=== PATIENT | female | born 1995 | race Caucasian/White ===

== ENCOUNTER 2017-12-01 17:05 | Inpatient (IN) | payer BC, MEDICAID ==
[2017-12-01] MEDS ORDERED: Nalbuphine 10 MG/1 ML Vial IVPUSH PRN (17:18)
[2017-12-01] MEDS ORDERED: Water For Irrigation,Sterile 1,000 ML Container IRR PRN (17:18)
[2017-12-01] MEDS ORDERED: Lidocaine 1% 50 ML MDV INJECT PRN (17:18)
[2017-12-01] MEDS ORDERED: Carboprost Tromethamine 250 MCG/1 ML Amp IM PRN (17:18)
[2017-12-01] MEDS ORDERED: Butorphanol 1 MG/ML SDV IVPUSH PRN (17:18)
[2017-12-01] MEDS ORDERED: Terbutaline 1 MG/ML SDV SUBCUT PRN (17:18)
[2017-12-01] MEDS ORDERED: Ondansetron 4 MG/2 ML SDV IV PRN (17:18)
[2017-12-01] MEDS ORDERED: Methylergonovine 0.2 MG/1 ML Amp IM PRN (17:18)
[2017-12-01] MEDS ORDERED: Tranexamic Acid 1,000 MG in Sodium Chloride 0.9% 100 ML IV PRN (17:18)
[2017-12-01] MEDS ORDERED: Sodium Chloride 0.9% 10 ML Syringe FLUSH PRN (17:18)
[2017-12-01] MEDS ORDERED: Sodium Chloride 0.9% 2.5 ML Syringe FLUSH PRN (17:18)
[2017-12-01] MEDS ORDERED: Misoprostol 200 MCG Tab PO PRN (17:18)
[2017-12-01] MEDS ORDERED: Oxytocin/0.9 % Sodium Chloride 30 UNIT/500 ML BAG IV SCH ×2 (17:30)
[2017-12-01] MEDS ORDERED: Lactated Ringers 1,000 ML IV SCH (17:30)
[2017-12-01] MEDS: Misoprostol 25 MCG (1/4 of 100 MCG) Tab VAG PRN (17:54)
[2017-12-02] MEDS: Misoprostol 25 MCG (1/4 of 100 MCG) Tab VAG PRN (00:02)
[2017-12-02] MEDS ORDERED: Docusate Sodium 100 MG Cap PO PRN (17:06)
[2017-12-02] MEDS ORDERED: Ibuprofen 400 MG Tab PO PRN (17:06)
[2017-12-02] MEDS ORDERED: Lanolin 100% Cream 7 GM Tube TOP PRN (17:06)
[2017-12-02] MEDS ORDERED: Acetaminophen 500 MG Tab PO PRN ×2 (17:06)
[2017-12-02] MEDS ORDERED: Benzocaine/Menthol 20%-0.5% Spray 78 GM Cannister TOP PRN (17:06)
[2017-12-02] MEDS ORDERED: Witch Hazel Medicated Pads 40/Jar TOP PRN (17:06)
[2017-12-02] MEDS ORDERED: Methylergonovine 0.2 MG/1 ML Amp IM PRN (17:06)
[2017-12-02] MEDS ORDERED: Bisacodyl 10 MG Supp RECTAL PRN (17:06)
[2017-12-02] MEDS ORDERED: oxyCODONE 5 MG Tab PO PRN (17:06)
--- NOTE | 2017-12-02 17:41 | PCM.DEL ---
L & D Note - General Info Date of Service: 12/02/17 Mother's Due Date: 12/09/17 - Delivery Note Labor: Augmented by ARM Cervical Ripening Method: Misoprostil Delivery Outcome: Livebirth Infant Delivery Method: Spontaneous Vaginal Delivery-Single Presentation: Right Occiput Anterior (LIZANDRO) Nuchal Cord: Present Anesthetic: Lidocaine (Xylocaine) 1% Plain Local Anesthetic Volume: 5cc Amniotic Fluid Description: Clear Episiotomy Type: None Laceration: Labial (Left) Suture type: Vicryl Suture size: 3-0 Placenta: Intact, Spontaneous Cord: 3 Vessels Estimated Blood Loss: 300 Resuscitation Needed: Yes : Bulb Syringe, Stimulated, Warmed Score 1 min: 3 Score 5 min: 9 - General Info Date of Service: 12/02/17 - Patient Data Weight - Most Recent: 54.431 kg Lab Results Last 24 Hours: Laboratory Results - last 24 hr 12/01/17 12/01/17 Range/Units 17:34 17:34 WBC 7.93 (4.0-11.0) K/uL RBC 3.55 L (4.30-5.90) M/uL Hgb 10.5 L (12.0-16.0) g/dL Hct 31.2 L (36.0-46.0) % MCV 87.9 (80.0-98.0) fL MCH 29.6 (27.0-32.0) pg MCHC 33.7 (31.0-37.0) g/dL RDW Std Deviation 41.2 (28.0-62.0) fl RDW Coeff of Vanessa 13 (11.0-15.0) % Plt Count 243 (150-400) K/uL MPV 9.60 (7.40-12.00) fL Nucleated RBC % 0.0 /100WBC Nucleated RBCs # 0 K/uL Blood Type A POSITIVE Antibody Screen NEGATIVE Med Orders - Current: Current Medications Butorphanol Tartrate (Stadol) 1 mg IVPUSH Q1H PRN PRN Reason: Pain Carboprost Tromethamine (Hemabate Ds) 250 mcg IM ASDIRECTED PRN PRN Reason: Post Hemorrhage Lactated Ringer's (Ringers, Lactated) 1,000 mls @ 150 mls/hr IV ASDIRECTED KING Last Admin: 12/02/17 09:50 Dose: 999 mls/hr Oxytocin/Sodium Chloride (Oxytocin 30 Unit/500 Ml-Ns) 30 unit in 500 mls @ 999 mls/hr IV TITRATE KING Last Admin: 12/02/17 16:14 Dose: 999 mls/hr Oxytocin/Sodium Chloride (Oxytocin 30 Unit/500 Ml-Ns) 30 unit in 500 mls @ 2 mls/hr IV TITRATE KING; Protocol Tranexamic Acid 1,000 mg/ (Sodium Chloride) 110 mls @ 660 mls/hr IV ONETIME PRN PRN Reason: Bleeding Lidocaine HCl (Xylocaine 1%) 50 ml INJECT ONETIME PRN PRN Reason: Laceration repair Last Admin: 12/02/17 16:46 Dose: 50 ml Methylergonovine Maleate (Methergine) 0.2 mg IM ASDIRECTED PRN PRN Reason: Post Hemorrhage Misoprostol (Cytotec) 200 mcg PO ONETIME PRN PRN Reason: Post Hemorrhage Misoprostol (Cytotec) 25 mcg VAG Q6H PRN PRN Reason: Cervical Ripening Last Admin: 12/02/17 00:02 Dose: 25 mcg Nalbuphine HCl (Nubain) 10 mg IVPUSH Q1H PRN PRN Reason: Pain (severe 7-10) Ondansetron HCl (Zofran) 4 mg IV Q6H PRN PRN Reason: Nausea/Vomiting Sodium Chloride (Saline Flush) 10 ml FLUSH ASDIRECTED PRN PRN Reason: Keep Vein Open Sodium Chloride (Saline Flush) 2.5 ml FLUSH ASDIRECTED PRN PRN Reason: Keep Vein Open Sterile Water (Sterile Water For Irrigation) 1,000 ml IRR ASDIRECTED PRN PRN Reason: delivery Last Admin: 12/02/17 16:46 Dose: 1,000 ml Terbutaline Sulfate (Brethine) 0.25 mg SUBCUT ASDIRECTED PRN PRN Reason: Tacysystole - Problem List & Annotations (1) Normal spontaneous vaginal delivery SNOMED Code(s): 74391911 Code(s): O80 - ENCOUNTER FOR FULL-TERM UNCOMPLICATED DELIVERY Status: Acute Current Visit: Yes - Problem List Review Problem List Initiated/Reviewed/Updated: Yes
[2017-12-02] MEDS: Ibuprofen 800 MG Tab PO PRN (19:43)
--- NOTE | 2017-12-03 00:05 | OR ---
SURGEON: Regina Haddad M.D. DATE OF PROCEDURE: 12/02/2017 DICTATED BY: Elaina Adorno. PREOPERATIVE DIAGNOSES: 1. A 39-week 0-day intrauterine . 2. Induction of labor for history of pulmonary embolism. POSTOPERATIVE DIAGNOSES: 1. A 39-week 0-day intrauterine . 2. Induction of labor for history of pulmonary embolism. PROCEDURE PERFORMED: Spontaneous vaginal delivery and repair of left labial laceration. SUBWAY OPERATOR: Elaina Adorno, MS-4 ANESTHESIA: 5 mL of 1% lidocaine. ESTIMATED BLOOD LOSS: 300 mL. COMPLICATIONS: None. FINDINGS: A viable female with scores of 3 at 1 minute and 9 at 5 minutes. Weight is 3170 g. Spontaneous delivery, intact placenta, 3-vessel cord. DISPOSITION: The patient in LDRP, and with mother at this time. PROCEDURE IN DETAIL: Fawn Sharpe is a 22-year-old at 39 weeks 0 days' gestational age, who presented for induction of labor given past medical history of pulmonary embolism. She has been on lovenox prophylactically through the . She took her last dose of Lovenox 24 hours prior to arrival for induction She arrived at 1700 hours last night, and initial cervical exam showed her to be 1 to 2 cm dilated, 50% effaced, -2 station, membranes intact. At 1800 hours yesterday evening, a first dose of Cytotec 25 mcg was placed. At 2100 hours, her exam showed her cervix to be 1 to 2 cm dilated, 50% effaced, -2 station. Another dose of Cytotec 25 mcg was placed at 0000 hours, and at that time, cervix was 2 cm dilated, 50% effaced, -2 station. By 0830 hours this morning, cervix was 3 to 4 cm dilated, 70% effaced, -2 station, and amniotomy was performed with return of clear fluid. By 1215 hours, she was 8 cm dilated, 90% effaced, 0 station. At 1510 hours, she was noted to be completely dilated, 100% effaced, +1 station. I was called for delivery. Upon my arrival, the patient was placed in the modified dorsal lithotomy position, was prepped and draped in the usual aseptic manner. With continued pushing efforts, I was able to deliver the infant's head atraumatically and spontaneously, followed by anterior shoulder, posterior shoulder, and main body. Familia position and corkscrew maneuver was used to assist with delivery of the anterior shoulder, however no shoulder dystocia occurred. Nuchal cord was noted x1. After delivery of the main body, cord was clamped x2 and cut. The infant was handed off to nursing staff for further cares. Cord arterial, cord venous, and cord blood sampling were obtained. Light pressure was applied while the placenta was delivered spontaneously intact. Vigorous fundal uterine massage was applied while 30 units of Pitocin was delivered in 500 mL of IV fluid. Upon inspection of the cervix, vaginal sidewall, and perineum, a small left labial laceration was noted. This was repaired with 1 interrupted suture using 3-0 Vicryl. Uterus remained firm, and hemostasis was evident. Sponge and needle counts were correct. The patient remained in LDRP, and the is with mother at this time. I was present for entire delivery and have reviewed this dictation. MD NAN Peterson / ARIES /[id number] CHELSI
[2017-12-03] MEDS: Ibuprofen 800 MG Tab PO PRN (04:32)
--- NOTE | 2017-12-03 08:24 | PCM.PN ---
<Elaina Adorno - Last Filed: 12/03/17 08:19> - General Info Date of Service: 12/03/17 Subjective Update: 22yo PPD#1 from [facility]. Doing well this AM. Initially had some trouble but feels it is going well now. Endorsing occasional uterine cramping "like period cramps" and some perineal pain, mostly controlled with PO meds. Was straight cathed x1 last night, but was able to void since then without hesitancy or dysuria. Minimal lochia. Ambulating without difficulty. Tolerating diet, no nausea. - Review of Systems General: Reports: No Symptoms HEENT: Reports: No Symptoms Pulmonary: Reports: No Symptoms Cardiovascular: Reports: No Symptoms Gastrointestinal: Reports: No Symptoms Genitourinary: Reports: Other (Cramping and perineal pain) Musculoskeletal: Reports: No Symptoms Skin: Reports: No Symptoms Neurological: Reports: No Symptoms Psychiatric: Reports: No Symptoms - Patient Data Vitals - Most Recent: Last Vital Signs Temp 99.2 F 12/03/17 07:20 Pulse 69 12/03/17 07:20 Resp 16 12/03/17 07:20 BP 111/44 L 12/03/17 07:20 Pulse Ox 95 12/03/17 07:20 Weight - Most Recent: 54.431 kg Lab Results Last 24 Hours: Laboratory Results - last 24 hr 12/02/17 12/03/17 Range/Units 16:13 05:04 Hgb 10.0 L (12.0-16.0) g/dL Hct 30.4 L (36.0-46.0) % Cord ABG pH 7.154 L (7.18-7.38) Cord ABG Base Excess -11 L (-10--2) Cord VBG pH 7.267 (7.25-7.45) Cord VBG Base Excess -9 (-10--2) Med Orders - Current: Current Medications Acetaminophen (Tylenol Extra Strength) 500 mg PO Q4H PRN PRN Reason: Pain Acetaminophen (Tylenol Extra Strength) 1,000 mg PO Q4H PRN PRN Reason: Pain Benzocaine/Menthol (Dermoplast Pain Relief 20%-0.5% [place]) 78 gm TOP ASDIRECTED PRN PRN Reason: Perineal Comfort Measure Last Admin: 12/02/17 18:11 Dose: 1 can Bisacodyl (Dulcolax) 10 mg RECTAL ONETIME PRN PRN Reason: Constipation Docusate Sodium (Colace) 100 mg PO BID PRN PRN Reason: Constipation Emollient Ointment (Lansinoh Hpa) 0 gm TOP ASDIRECTED PRN PRN Reason: Sore Nipples Enoxaparin Sodium (Lovenox) 40 mg SUBCUT DAILY KING Ibuprofen (Motrin) 400 mg PO Q4H PRN PRN Reason: Pain Ibuprofen (Motrin) 800 mg PO Q6H PRN PRN Reason: Pain Last Admin: 12/03/17 04:32 Dose: 800 mg Methylergonovine Maleate (Methergine) 0.2 mg IM ONETIME PRN PRN Reason: Excessive Vaginal Bleeding Oxycodone HCl (Oxycodone) 5 mg PO Q2H PRN PRN Reason: Pain Witch Sharon (Tucks) 1 pad TOP ASDIRECTED PRN PRN Reason: comfort care Last Admin: 12/02/17 18:11 Dose: 1 tub Discontinued Medications Butorphanol Tartrate (Stadol) 1 mg IVPUSH Q1H PRN PRN Reason: Pain Carboprost Tromethamine (Hemabate Ds) 250 mcg IM ASDIRECTED PRN PRN Reason: Post Hemorrhage Lactated Ringer's (Ringers, Lactated) 1,000 mls @ 150 mls/hr IV ASDIRECTED [facility] Last Admin: 12/02/17 09:50 Dose: 999 mls/hr Oxytocin/Sodium Chloride (Oxytocin 30 Unit/500 Ml-Ns) 30 unit in 500 mls @ 999 mls/hr IV TITRATE [facility] Last Admin: 12/02/17 16:14 Dose: 999 mls/hr Oxytocin/Sodium Chloride (Oxytocin 30 Unit/500 Ml-Ns) 30 unit in 500 mls @ 2 mls/hr IV TITRATE [facility]; Protocol Tranexamic Acid 1,000 mg/ (Sodium Chloride) 110 mls @ 660 mls/hr IV ONETIME PRN PRN Reason: Bleeding Lidocaine HCl (Xylocaine 1%) 50 ml INJECT ONETIME PRN PRN Reason: Laceration repair Last Admin: 12/02/17 16:46 Dose: 50 ml Methylergonovine Maleate (Methergine) 0.2 mg IM ASDIRECTED PRN PRN Reason: Post Hemorrhage Misoprostol (Cytotec) 200 mcg PO ONETIME PRN PRN Reason: Post Hemorrhage Misoprostol (Cytotec) 25 mcg VAG Q6H PRN PRN Reason: Cervical Ripening Last Admin: 12/02/17 00:02 Dose: 25 mcg Nalbuphine HCl (Nubain) 10 mg IVPUSH Q1H PRN PRN Reason: Pain (severe 7-10) Ondansetron HCl (Zofran) 4 mg IV Q6H PRN PRN Reason: Nausea/Vomiting Sodium Chloride (Saline Flush) 10 ml FLUSH ASDIRECTED PRN PRN Reason: Keep Vein Open Sodium Chloride (Saline Flush) 2.5 ml FLUSH ASDIRECTED PRN PRN Reason: Keep Vein Open Sterile Water (Sterile Water For Irrigation) 1,000 ml IRR ASDIRECTED PRN PRN Reason: delivery Last Admin: 12/02/17 16:46 Dose: 1,000 ml Terbutaline Sulfate (Brethine) 0.25 mg SUBCUT ASDIRECTED PRN PRN Reason: Tacysystole - Exam General: Alert, Oriented Lungs: Clear to Auscultation, Normal Respiratory Effort Cardiovascular: Regular Rate, Regular Rhythm, No Murmurs GI/Abdominal Exam: Normal Bowel Sounds, Soft, Non-Tender (Female) Exam: No: Uterine Tenderness Extremities: No Pedal Edema, Other (No calf tendereness) Peripheral Pulses: 2+: Posterior Tibial (L), Posterior Tibial (R), Dorsalis Pedis (L), Dorsalis Pedis (R) Skin: Warm, Dry Neurological: No New Focal Deficit Psy/Mental Status: Normal Affect, Normal Mood - Problem List & Annotations (1) Normal spontaneous vaginal delivery SNOMED Code(s): 52989366 Code(s): O80 - ENCOUNTER FOR FULL-TERM UNCOMPLICATED DELIVERY Status: Acute Current Visit: Yes - Problem List Review Problem List Initiated/Reviewed/Updated: Yes - Assessment Assessment:: Fawn Sharpe is a 22yo with PMH notable for pulmonary embolism who is PPD #1 from and repair of left labial laceration. Clinically stable, VS and labs reassuring. - Plan Plan:: Continue routine cares. She will resume lovenox at 0900 today. Patient desires discharge home this evening, discharge instructions discussed. Continue PNV while . Can use tylenol for pain, no NSAIDs while on lovenox. Pelvic rest until follow-up in clinic in 6 weeks. Discussed warning signs to return to clinic including fever over 101, intractable pain, and bleeding more than 1 pad per hour. <Regina Haddad - Last Filed: 12/03/17 08:48> - Patient Data Vitals - Most Recent: Last Vital Signs Temp 37.3 C 12/03/17 07:20 Pulse 69 12/03/17 07:20 Resp 16 12/03/17 07:20 BP 111/44 L 12/03/17 07:20 Pulse Ox 95 12/03/17 07:20 Lab Results Last 24 Hours: Laboratory Results - last 24 hr 12/02/17 12/03/17 Range/Units 16:13 05:04 Hgb 10.0 L (12.0-16.0) g/dL Hct 30.4 L (36.0-46.0) % Cord ABG pH 7.154 L (7.18-7.38) Cord ABG Base Excess -11 L (-10--2) Cord VBG pH 7.267 (7.25-7.45) Cord VBG Base Excess -9 (-10--2) Med Orders - Current: Current Medications Acetaminophen (Tylenol Extra Strength) 500 mg PO Q4H PRN PRN Reason: Pain Acetaminophen (Tylenol Extra Strength) 1,000 mg PO Q4H PRN PRN Reason: Pain Benzocaine/Menthol (Dermoplast Pain Relief 20%-0.5% [place]) 78 gm TOP ASDIRECTED PRN PRN Reason: Perineal Comfort Measure Last Admin: 12/02/17 18:11 Dose: 1 can Bisacodyl (Dulcolax) 10 mg RECTAL ONETIME PRN PRN Reason: Constipation Docusate Sodium (Colace) 100 mg PO BID PRN PRN Reason: Constipation Emollient Ointment (Lansinoh Hpa) 0 gm TOP ASDIRECTED PRN PRN Reason: Sore Nipples Enoxaparin Sodium (Lovenox) 40 mg SUBCUT DAILY KING Ibuprofen (Motrin) 400 mg PO Q4H PRN PRN Reason: Pain Ibuprofen (Motrin) 800 mg PO Q6H PRN PRN Reason: Pain Last Admin: 12/03/17 04:32 Dose: 800 mg Methylergonovine Maleate (Methergine) 0.2 mg IM ONETIME PRN PRN Reason: Excessive Vaginal Bleeding Oxycodone HCl (Oxycodone) 5 mg PO Q2H PRN PRN Reason: Pain Witch Sharon (Tucks) 1 pad TOP ASDIRECTED PRN PRN Reason: comfort care Last Admin: 12/02/17 18:11 Dose: 1 tub Discontinued Medications Butorphanol Tartrate (Stadol) 1 mg IVPUSH Q1H PRN PRN Reason: Pain Carboprost Tromethamine (Hemabate Ds) 250 mcg IM ASDIRECTED PRN PRN Reason: Post Hemorrhage Lactated Ringer's (Ringers, Lactated) 1,000 mls @ 150 mls/hr IV ASDIRECTED KING Last Admin: 12/02/17 09:50 Dose: 999 mls/hr Oxytocin/Sodium Chloride (Oxytocin 30 Unit/500 Ml-Ns) 30 unit in 500 mls @ 999 mls/hr IV TITRATE KING Last Admin: 12/02/17 16:14 Dose: 999 mls/hr Oxytocin/Sodium Chloride (Oxytocin 30 Unit/500 Ml-Ns) 30 unit in 500 mls @ 2 mls/hr IV TITRATE KING; Protocol Tranexamic Acid 1,000 mg/ (Sodium Chloride) 110 mls @ 660 mls/hr IV ONETIME PRN PRN Reason: Bleeding Lidocaine HCl (Xylocaine 1%) 50 ml INJECT ONETIME PRN PRN Reason: Laceration repair Last Admin: 12/02/17 16:46 Dose: 50 ml Methylergonovine Maleate (Methergine) 0.2 mg IM ASDIRECTED PRN PRN Reason: Post Hemorrhage Misoprostol (Cytotec) 200 mcg PO ONETIME PRN PRN Reason: Post Hemorrhage Misoprostol (Cytotec) 25 mcg VAG Q6H PRN PRN Reason: Cervical Ripening Last Admin: 12/02/17 00:02 Dose: 25 mcg Nalbuphine HCl (Nubain) 10 mg IVPUSH Q1H PRN PRN Reason: Pain (severe 7-10) Ondansetron HCl (Zofran) 4 mg IV Q6H PRN PRN Reason: Nausea/Vomiting Sodium Chloride (Saline Flush) 10 ml FLUSH ASDIRECTED PRN PRN Reason: Keep Vein Open Sodium Chloride (Saline Flush) 2.5 ml FLUSH ASDIRECTED PRN PRN Reason: Keep Vein Open Sterile Water (Sterile Water For Irrigation) 1,000 ml IRR ASDIRECTED PRN PRN Reason: delivery Last Admin: 12/02/17 16:46 Dose: 1,000 ml Terbutaline Sulfate (Brethine) 0.25 mg SUBCUT ASDIRECTED PRN PRN Reason: Tacysystole - Problem List & Annotations (1) Normal spontaneous vaginal delivery SNOMED Code(s): 63897765 Code(s): O80 - ENCOUNTER FOR FULL-TERM UNCOMPLICATED DELIVERY Status: Acute Current Visit: Yes - Problem List Review Problem List Initiated/Reviewed/Updated: Yes - My Orders Last 24 Hours: My Active Orders 12/02/17 17:06 Patient Status [ADT] Routine May Shower [RC] ASDIRECTED Up ad Sara [RC] ASDIRECTED Vital Signs [RC] PER UNIT ROUTINE Acetaminophen [Tylenol Extra Strength] 1,000 mg PO Q4H PRN Acetaminophen [Tylenol Extra Strength] 500 mg PO Q4H PRN Benzocaine/Menthol [Dermoplast Pain Relief 20%-0.5% [place]] 78 gm TOP ASDIRECTED PRN Bisacodyl [Dulcolax] 10 mg RECTAL ONETIME PRN Docusate Sodium [Colace] 100 mg PO BID PRN Ibuprofen [Motrin] 400 mg PO Q4H PRN Ibuprofen [Motrin] 800 mg PO Q6H PRN Lanolin [Lansinoh HPA] See Dose Instructions TOP ASDIRECTED PRN Methylergonovine [Methergine] 0.2 mg IM ONETIME PRN Witch Sharon [Tucks] 1 pad TOP ASDIRECTED PRN oxyCODONE 5 mg PO Q2H PRN Assess Lochia [WOMSER] Per Unit Routine Assess Uterine Involution [WOMSER] Per Unit Routine DVT/VTE Prophylaxis Reflex [OM.PC] Routine Peripheral IV Discontinue [OM.PC] Routine Resuscitation Status Routine 12/02/17 17:07 Antiembolic Devices [RC] .Routine VTE/DVT Education [RC] PER UNIT ROUTINE Perineal Care [OM.PC] Per Unit Routine 12/02/17 Dinner Regular Diet [DIET] 12/03/17 09:00 Enoxaparin [Lovenox] 40 mg SUBCUT DAILY - Assessment Assessment:: patient was seen and examined by me and I agree with above. Patient was counseled regarding avoiding NSAID and aspirin while on Lovenox. Continue Lovenox for 6 weeks.
[2017-12-03] MEDS ORDERED: Enoxaparin 40 MG/0.4 ML Syringe SUBCUT SCH (09:00)
== END 2017-12-03 20:30 | disposition home or self-care (01) | DRG 774 ==
LOC: MW.OBCHECK 17:05 → MW.OB 17:12 → MW.OBCHECK 17:18 → OBSVTOIN 12-02 16:13 → MW.OB 12-02 21:28
PROVIDERS: ADMIT Obstetrics & Gynecology; ATTEND Obstetrics & Gynecology
PROC: 10E0XZZ Delivery of Products of Conception, External Approach (ICD-10-PCS; principal; 2017-12-02)
PROC: 3E0P7VZ Introduction of Hormone into Female Reproductive, Via Natural or Artificial Opening (ICD-10-PCS; 2017-12-02)
PROC: 0HQ9XZZ Repair Perineum Skin, External Approach (ICD-10-PCS; 2017-12-02)
DX: O70.0 First degree perineal laceration during delivery (principal); O88.22 Thromboembolism in childbirth; Z3A.39 39 weeks gestation of pregnancy; Z37.0 Single live birth; Z79.01 Long term (current) use of anticoagulants
CPT/HCPCS: 36415; 59025; 59409; 82803; 85014; 85018; 85027; 86850; 86900; 86901; A9270-GY; J1650; J2590; J7120

== ENCOUNTER 2018-05-17 19:55 | Emergency (ER) | payer MEDICAID, OTHER ==
--- NOTE | 2018-05-17 20:23 | EDM.PDOC ---
ED HPI GENERAL MEDICAL PROBLEM - General Chief Complaint: Chest Pain Stated Complaint: CHEST PAIN Time Seen by Provider: 05/17/18 20:05 Source of Information: Reports: Patient History Limitations: Reports: No Limitations - History of Present Illness INITIAL COMMENTS - FREE TEXT/NARRATIVE: HISTORY AND PHYSICAL: History of present illness: Patient is a G2:P1, 23-year-old female presents to the ED today with concerns of left-sided chest pressure. Patient states she believes to be about 7 weeks and is concerned about pressure in her left chest times x 1 week. Patient describes it as feeling as if someone is sitting on the left side of her chest. Patient has a history of PE and was on Lovenox and was stopped about 6 months ago. Patient states that this sensation is similar to previous PE. Patient states she had a workup for the cause of her PE but none was found. She has not seen a woman's health practitioner or any provider since a positive test. Patient states other than the pressure in her chest she denies any other symptoms or concerns at this time. Denies any vaginal bleeding/ discharge, cramping or low back pain. Patient denies cough, shortness of breath, difficulties breathing, hemoptysis palpitations, pain with inspiration, diaphoresis, abdominal pain, nausea, vomiting, diarrhea, recent illness, trauma, or all other GI, , respiratory, or cardiovascular concerns. Patient denies any other health history other than what is stated above. Review of systems: As per history of present illness and below otherwise all systems reviewed and negative. Past medical history: As per history of present illness and as reviewed below otherwise noncontributory. Surgical history: As per history of present illness and as reviewed below otherwise noncontributory. Social history: See social history for further information Family history: As per history of present illness and as reviewed below otherwise noncontributory. Physical exam: General: Patient is alert, oriented, and in no acute distress. She is lying comfortably on exam table. HEENT: Atraumatic, normocephalic, pupils equal and reactive bilaterally, negative for conjunctival pallor or scleral icterus, mucous membranes moist, TMs normal bilaterally, throat clear, neck supple, nontender, trachea midline. No drooling or trismus noted. No meningeal signs. No hot potato voice noted. Lungs: Clear to auscultation, breath sounds equal bilaterally, chest nontender. Heart: S1S2, regular rate and rhythm without overt murmur Abdomen: Soft, nondistended, nontender. Negative for masses or hepatosplenomegaly. Negative for costovertebral tenderness. Pelvis: Stable nontender. Genitourinary: Deferred. Rectal: Deferred. Skin: Intact, warm, dry. No lesions or rashes noted. Extremities: Atraumatic, negative for cords or calf pain. Neurovascular unremarkable. Neuro: Awake, alert, oriented. Cranial nerves II through XII unremarkable. Cerebellum unremarkable. Motor and sensory unremarkable throughout. Exam nonfocal. Notes: Due to the patient's concern of having a PE we will do a d-dimer D-dimer is slightly elevated. Patient is an unassigned OB patient, Dr. Barcenas was consulted on this patient. He is agreeable that this patient does need a CTA to rule out PE. Patient is aware of risks versus benefits of doing this diagnostic while including effects on the fetus. She would like this test completed. CT shows no PE or pneumonia. No findings noted. All diagnostics were shared with the patient. We'll treat the UTI with antibiotics. Encouraged her to follow -up with her primary care provider and establish care with an CONSTRUCTION ADMINISTRATOR. Supportive care measures were reviewed and discussed. Voices understanding and is agreeable to plan of care. Denies any further questions or concerns at this time. Diagnostics: CBC, CMP, urine, urine hCG, d-dimer, CTA Therapeutics: IV fluid Prescription: Macrobid Impression: Urinary Tract Infection Plan: 1. Please take your antibiotic as prescribed. 2. Tylenol as needed for pain management. 3. Please establish care with an CONSTRUCTION ADMINISTRATOR for further care and management of your needs. Please follow-up with either the CONSTRUCTION ADMINISTRATOR or primary care provider as discussed. Return to the ED as needed and as discussed. Definitive disposition and diagnosis as appropriate pending reevaluation and review of above. Left Chest Pain Score (Numeric/FACES): 3 - Related Data Allergies Allergy/AdvReac Type Severity Reaction Status Date / Time No Known Allergies Allergy Verified 05/17/18 19:56 Home Meds: Home Meds Nitrofurantoin Monohyd/M-Cryst [Macrobid 100 mg Capsule] 100 mg PO BID 5 Days # 10 capsule 05/17/18 [Rx] Past Medical History - Past Health History Medical/Surgical History: Denies Medical/Surgical History Cardiovascular History: Reports: None Respiratory History: Reports: Asthma, PE Gastrointestinal History: Reports: Irritable Bowel Syndrome Genitourinary History: Reports: None CONSTRUCTION ADMINISTRATOR History: Reports: Musculoskeletal History: Reports: None Neurological History: Reports: None Psychiatric History: Reports: None Endocrine/Metabolic History: Reports: None Hematologic History: Reports: None Immunologic History: Reports: None Oncologic (Cancer) History: Reports: None Dermatologic History: Reports: None - Infectious Disease History Infectious Disease History: Reports: None - Past Surgical History Head Surgeries/Procedures: Reports: None HEENT Surgical History: Reports: Oral Surgery GI Surgical History: Reports: None Social & Family History - Family History Family Medical History: Noncontributory - Tobacco Use Smoking Status *Q: Former Smoker Used Tobacco, but Quit: Yes Month/Year Tobacco Last Used: 3 yr - Caffeine Use Caffeine Use: Reports: Coffee - Recreational Drug Use Recreational Drug Use: No ED ROS GENERAL - Review of Systems Review Of Systems: ROS reveals no pertinent complaints other than HPI. ED EXAM, GENERAL - Physical Exam Exam: See Below (See dictation) Course - Vital Signs Last Recorded V/S: Last Vital Signs Temp 96.9 F 05/17/18 19:57 Pulse 70 05/17/18 20:46 Resp 17 05/17/18 20:46 BP 101/51 L 05/17/18 20:46 Pulse Ox 100 05/17/18 20:46 - Orders/Labs/Meds Orders: Active Orders 24 hr Category Date Time Status EKG Documentation Completion [RC] STAT Care 05/17/18 20:17 Active CULTURE URINE [RM] Stat Lab 05/17/18 20:20 Received Labs: Laboratory Tests 05/17/18 05/17/18 05/17/18 Range/Units 20:00 20:00 20:00 WBC 5.41 (4.0-11.0) K/uL RBC 4.02 L (4.30-5.90) M/uL Hgb 12.2 (12.0-16.0) g/dL Hct 35.3 L (36.0-46.0) % MCV 87.8 (80.0-98.0) fL MCH 30.3 (27.0-32.0) pg MCHC 34.6 (31.0-37.0) g/dL RDW Std Deviation 40.6 (28.0-62.0) fl RDW Coeff of Vanessa 12 (11.0-15.0) % Plt Count 167 (150-400) K/uL MPV 9.80 (7.40-12.00) fL Neut % (Auto) 63.3 (48.0-80.0) % Lymph % (Auto) 27.4 (16.0-40.0) % Moca % (Auto) 8.5 (0.0-15.0) % Eos % (Auto) 0.6 (0.0-7.0) % Baso % (Auto) 0.2 (0.0-1.5) % Neut # (Auto) 3.4 (1.4-5.7) K/uL Lymph # (Auto) 1.5 (0.6-2.4) K/uL Moca # (Auto) 0.5 (0.0-0.8) K/uL Eos # (Auto) 0.0 (0.0-0.7) K/uL Baso # (Auto) 0.0 (0.0-0.1) K/uL Nucleated RBC % 0.0 /100WBC Nucleated RBCs # 0 K/uL D-Dimer, Quantitative 0.70 H (0.0-0.50) mg/L FEU Sodium 135 L (136-145) mmol/L Potassium 4.0 (3.5-5.1) mmol/L Chloride 101 (98-107) mmol/L Carbon Dioxide 23.8 (21.0-32.0) mmol/L BUN 11 (7.0-18.0) mg/dL Creatinine 0.7 (0.6-1.0) mg/dL Est Cr Clr Drug Dosing 91.32 mL/min Estimated GFR (MDRD) > 60.0 ml/min Glucose 123 H (74-106) mg/dL Calcium 8.9 (8.5-10.1) mg/dL Total Bilirubin 0.2 (0.2-1.0) mg/dL AST 10 L (15-37) IU/L ALT 18 (14-63) IU/L Alkaline Phosphatase 55 (46-116) U/L Total Protein 7.3 (6.4-8.2) g/dL Albumin 3.8 (3.4-5.0) g/dL Globulin 3.5 (2.6-4.0) g/dL Albumin/Globulin Ratio 1.1 (0.9-1.6) Urine Color Urine Appearance Urine pH (5.0-8.0) Ur Specific [place] (1.001-1.035) Urine Protein (NEGATIVE) mg/dL Urine Glucose (UA) (NEGATIVE) mg/dL Urine Ketones (NEGATIVE) mg/dL Urine Occult Blood (NEGATIVE) Urine Nitrite (NEGATIVE) Urine Bilirubin (NEGATIVE) Urine Urobilinogen (<2.0) EU/dL Ur Leukocyte Esterase (NEGATIVE) Urine RBC (0-2/HPF) Urine WBC (0-5/HPF) Ur Squamous Epith Cells Urine Bacteria (NEGATIVE) Urine Mucus (NONE-MOD) Urine HCG, Qual (NEGATIVE) 05/17/18 05/17/18 Range/Units 20:20 20:20 WBC (4.0-11.0) K/uL RBC (4.30-5.90) M/uL Hgb (12.0-16.0) g/dL Hct (36.0-46.0) % MCV (80.0-98.0) fL MCH (27.0-32.0) pg MCHC (31.0-37.0) g/dL RDW Std Deviation (28.0-62.0) fl RDW Coeff of Vanessa (11.0-15.0) % Plt Count (150-400) K/uL MPV (7.40-12.00) fL Neut % (Auto) (48.0-80.0) % Lymph % (Auto) (16.0-40.0) % Moca % (Auto) (0.0-15.0) % Eos % (Auto) (0.0-7.0) % Baso % (Auto) (0.0-1.5) % Neut # (Auto) (1.4-5.7) K/uL Lymph # (Auto) (0.6-2.4) K/uL Moca # (Auto) (0.0-0.8) K/uL Eos # (Auto) (0.0-0.7) K/uL Baso # (Auto) (0.0-0.1) K/uL Nucleated RBC % /100WBC Nucleated RBCs # K/uL D-Dimer, Quantitative (0.0-0.50) mg/L FEU Sodium (136-145) mmol/L Potassium (3.5-5.1) mmol/L Chloride (98-107) mmol/L Carbon Dioxide (21.0-32.0) mmol/L BUN (7.0-18.0) mg/dL Creatinine (0.6-1.0) mg/dL Est Cr Clr Drug Dosing mL/min Estimated GFR (MDRD) ml/min Glucose (74-106) mg/dL Calcium (8.5-10.1) mg/dL Total Bilirubin (0.2-1.0) mg/dL AST (15-37) IU/L ALT (14-63) IU/L Alkaline Phosphatase (46-116) U/L Total Protein (6.4-8.2) g/dL Albumin (3.4-5.0) g/dL Globulin (2.6-4.0) g/dL Albumin/Globulin Ratio (0.9-1.6) Urine Color YELLOW Urine Appearance SLT CLOUDY Urine pH 6.0 (5.0-8.0) Ur Specific [place] 1.015 (1.001-1.035) Urine Protein NEGATIVE (NEGATIVE) mg/dL Urine Glucose (UA) NEGATIVE (NEGATIVE) mg/dL Urine Ketones 15 H (NEGATIVE) mg/dL Urine Occult Blood NEGATIVE (NEGATIVE) Urine Nitrite NEGATIVE (NEGATIVE) Urine Bilirubin NEGATIVE (NEGATIVE) Urine Urobilinogen 0.2 (<2.0) EU/dL Ur Leukocyte Esterase MODERATE H (NEGATIVE) Urine RBC NONE SEEN (0-2/HPF) Urine WBC 7-11 (0-5/HPF) Ur Squamous Epith Cells MODERATE Urine Bacteria 2+ H (NEGATIVE) Urine Mucus LIGHT (NONE-MOD) Urine HCG, Qual POSITIVE (NEGATIVE) Meds: Medications Discontinued Medications Generic Name Dose Route Start Last Admin Trade Name Freq PRN Reason Stop Dose Admin Sodium Chloride 1,000 mls @ 999 mls/hr 05/17/18 20:45 05/17/18 20:52 Normal Saline IV 05/17/18 21:45 999 mls/hr STAT ONE Administration Iopamidol 100 ml 05/17/18 21:20 05/17/18 21:25 Isovue-370 (76%) IVPUSH 05/17/18 21:21 100 ml ONETIME ONE Administration Nitrofurantoin Macrocrystals 100 mg 05/17/18 21:48 Macrobid PO 05/17/18 21:49 ONETIME ONE Departure - Departure Time of Disposition: 21:37 Disposition: Home, Self-Care 01 Clinical Impression: UTI (urinary tract infection) during Qualifiers: Trimester: first trimester Qualified Code(s): O23.41 - Unspecified infection of urinary tract in , first trimester - Discharge Information Prescriptions: Nitrofurantoin Monohyd/M-Cryst [Macrobid 100 mg Capsule] 100 mg PO BID 5 Days # 10 capsule Instructions: Urinary Tract Infection, Adult Forms: ED Department Discharge Additional Instructions: The following information is given to patients seen in the emergency department who are being discharged to home. This information is to outline your options for follow-up care. We provide all patients seen in our emergency department with a follow-up referral. The need for follow-up, as well as the timing and circumstances, are variable depending upon the specifics of your emergency department visit. If you don't have a primary care physician on staff, we will provide you with a referral. We always advise you to contact your personal physician following an emergency department visit to inform them of the circumstance of the visit and for follow-up with them and/or the need for any referrals to a consulting specialist. The emergency department will also refer you to a specialist when appropriate. This referral assures that you have the opportunity for follow-up care with a specialist. All of these measure are taken in an effort to provide you with optimal care, which includes your follow-up. Under all circumstances we always encourage you to contact your private physician who remains a resource for coordinating your care. When calling for follow-up care, please make the office aware that this follow-up is from your recent emergency room visit. If for any reason you are refused follow-up, please contact the [facility] Emergency Department at and asked to speak to the emergency department charge nurse. [facility] Primary Care: Women's Health [address] [place] [address] [id number] [place] [address] [facility] [address] [place] [address] 1. Please take your antibiotic as prescribed. 2. Tylenol as needed for pain management. 3. Please establish care with an CONSTRUCTION ADMINISTRATOR for further care and management of your needs. Please follow-up with either the CONSTRUCTION ADMINISTRATOR or primary care provider as discussed. Return to the ED as needed and as discussed. - My Orders Last 24 Hours: My Active Orders 05/17/18 20:17 EKG Documentation Completion [RC] STAT 05/17/18 20:20 CULTURE URINE [RM] Stat - Assessment/Plan Last 24 Hours: My Active Orders 05/17/18 20:17 EKG Documentation Completion [RC] STAT 05/17/18 20:20 CULTURE URINE [RM] Stat
[2018-05-17] MEDS ORDERED: Sodium Chloride 0.9% 1,000 ML IV ONE (20:45)
[2018-05-17 20:54] LABS: CHLORIDE,CL 101 mmol/L (98-107); SODIUM,NA 135 mmol/L (136-145)
[2018-05-17] MEDS ORDERED: Iopamidol 755 Mg/ML 100 ML Bottle IVPUSH ONE (21:20)
[2018-05-17] MEDS ORDERED: Nitrofurantoin Monohydrate/Macrocrystalline 100 MG Cap PO ONE (21:48)
--- NOTE | 2018-05-17 21:48 | CT ---
INDICATION: Chest pain, elevated D-dimer TECHNIQUE: CT chest pulmonary PE protocol acquired with 100 cc Isovue 370 IV contrast. COMPARISON: None FINDINGS: Cardiovascular structures: Normal vascular enhancement of the pulmonary arteries, no sign of pulmonary embolism. Heart size is normal. No sign of aneurysm in the thoracic aorta. Mediastinum and jazmin: No mass or adenopathy. Lungs: Clear. Pleura and pericardium: No effusions. Chest wall and axilla: No mass or adenopathy. Upper abdomen: Unremarkable. Bones: No significant findings. IMPRESSION: Unremarkable chest CT. Specifically, no pulmonary embolism or pneumonia. Please note that all CT scans at this facility use dose modulation, iterative reconstruction, and/or weight-based dosing when appropriate to reduce radiation dose to as low as reasonably achievable. Dictated by Erin Krishnamurthy MD @ May 17 2018 9:33PM Signed by Dr. Erin Krishnamurthy @ May 17 2018 9:47PM
== END 2018-05-17 22:12 | disposition home or self-care (01) ==
LOC: MW.ED 19:55
DX: O23.41 Unspecified infection of urinary tract in pregnancy, first trimester (principal); Z87.891 Personal history of nicotine dependence; Z3A.01 Less than 8 weeks gestation of pregnancy
CPT/HCPCS: 71275; 80053; 81001; 81025; 85025; 85379; 87086; 93005; 96360; 99285; A9270; J7040; Q9967; 99284

== ENCOUNTER 2020-07-06 04:14 | Emergency (ER) | payer BC, OTHER ==
[2020-07-06] MEDS ORDERED: Sodium Chloride 0.9% 2.5 ML Syringe FLUSH PRN (04:22)
[2020-07-06] MEDS ORDERED: Sodium Chloride 0.9% 1,000 ML IV ONE (04:22)
[2020-07-06] MEDS ORDERED: Sodium Chloride 0.9% 10 ML Syringe FLUSH PRN (04:22)
[2020-07-06 04:55] LABS: BLOOD UREA NITROGEN,BUN 4 mg/dL (7.0-18.0); CARBON DIOXIDE,CO2 21.8 mmol/L (21.0-32.0); CHLORIDE,CL 105 mmol/L (98-107); GLUCOSE RANDOM 149 mg/dL (74-106); POTASSIUM,K 3.9 mmol/L (3.5-5.1); SODIUM,NA 136 mmol/L (136-145)
--- NOTE | 2020-07-06 04:55 | EDM.PDOC ---
ED HPI GENERAL MEDICAL PROBLEM - General Chief Complaint: AUTOMATIC GLOVE FORMER Problem Stated Complaint: EMS Time Seen by Provider: 07/06/20 04:21 - History of Present Illness INITIAL COMMENTS - FREE TEXT/NARRATIVE: This 25-year-old female G3, P3 Ab0 presents for vaginal bleeding and urinary retention 5 hours . She delivered at home with the assistance of Ms. Arce the timber harvester operator. The timber harvester operator felt like the patient was bleeding a little more than expected and felt like this was in part to the fact that she could not micturate. The timber harvester operator told me that there was labial swelling that was perhaps interfering with her ability to comfortably urinate The patient feels pale and weak when she gets up like she might pass out. She has significant pain in her perineal area. She does feel the urge to void. She had no complications with the previous 2 deliveries. Baby is healthy and the placenta was delivered promptly. The patient was in labor for 9 hours before the delivery at about 2300. History of present illness: [] Review of systems: As per history of present illness and below otherwise all systems reviewed and negative. Past medical history: As per history of present illness and as reviewed below otherwise noncontributory. Surgical history: As per history of present illness and as reviewed below otherwise noncontributory. Social history: No reported history of drug or alcohol abuse. Family history: As per history of present illness and as reviewed below otherwise noncontributory. Physical exam: Constitutional - well developed, well-nourished and in no acute distress HEENT - normocephalic, no evidence of trauma - external nose and mouth normal - no mass in neck and no JVD - mucosae moist EYES - full EOM, PERRL, no icterus - no evidence of inflammation, injection, or drainage Respiratory - no respiratory distress, equal bilateral expansion, lungs clear to auscultation and no abnormal lung sounds Cardiovascular - Regular Rhythm with S1 and S2 appreciated and no murmur, gallop or rub. GI - abdomen has a protuberant prominence in the anterior midline which is nearly the size of a gravid uterus but softer.. the labia are swollen and there is minimal bleeding from the introitus. Musculoskeletal no gross deformity of long bones or joints - no tenderness, swelling or edema Neurologic - Alert and oriented times four - CN II-XII grossly intact - motor sensory and coordination symmetrically normal Psychiatric - appropriate mood and affect with normal thought content Hematologic - No petechiae or purpura - mucosa appropriate color and sclera not pale - normal nail bed color and refill Integument - no rash or evidence of trauma - normal turgor Diagnostics: [] Therapeutics: [] Impression: [] Plan: [] Definitive disposition and diagnosis as appropriate pending reevaluation and review of above. - Related Data Allergies Allergy/AdvReac Type Severity Reaction Status Date / Time No Known Allergies Allergy Verified 07/06/20 04:25 Home Meds: Home Meds . [No Known Home Meds] 07/06/20 [History] Past Medical History - Past Health History Medical/Surgical History: Denies Medical/Surgical History Cardiovascular History: Reports: None Respiratory History: Reports: Asthma, PE Gastrointestinal History: Reports: Irritable Bowel Syndrome Genitourinary History: Reports: None AUTOMATIC GLOVE FORMER History: Reports: Musculoskeletal History: Reports: None Neurological History: Reports: None Psychiatric History: Reports: None Endocrine/Metabolic History: Reports: None Hematologic History: Reports: None Immunologic History: Reports: None Oncologic (Cancer) History: Reports: None Dermatologic History: Reports: None - Infectious Disease History Infectious Disease History: Reports: None - Past Surgical History Head Surgeries/Procedures: Reports: None HEENT Surgical History: Reports: Oral Surgery GI Surgical History: Reports: None Social & Family History - Family History Family Medical History: No Pertinent Family History - Tobacco Use Tobacco Use Status *Q: Never Tobacco User - Caffeine Use Caffeine Use: Reports: Coffee - Recreational Drug Use Recreational Drug Use: No ED ROS GENERAL - Review of Systems Review Of Systems: Comprehensive ROS is negative, except as noted in HPI. ED EXAM, GENERAL - Physical Exam Exam: See Below Free Text/Narrative:: My physical exam is in the HPI. Course - Vital Signs Text/Narrative:: After the pulmonary examination I called our OB nurses to come because the protuberance in abdomen is large enough that I had no way to know for sure that there was not a second . The patient had not had any ultrasound or for mal care with a health science specialist. The nurses from OB and our department attended the patient and did an in and out cath obtaining 1500 mL of urine. The OB nurses were able to massage the uterus and there was not much bleeding and the uterus came down to a nice firm texture. We decided to check the patient's blood count, monitor vital signs, give her hydration, and allow her to remain in the emergency department until she was able to void on her own. She elected not to be placed on observation on the OB wasserman. She does plan to breast-feed and the baby is at home doing well. 5:28 AM the patient's hemoglobin is 8.2. Her prior hemoglobins 3 years ago were 10.0 and 2 years ago was 12.2. 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 This complicates the issue of how best to protect her from DVT and yet get her to stop bleeding. Before calling on her to start bedrest and elemental iron replacement I discussed the case with Dr. Esquivel said she should start elemental iron and if she was not lightheaded and unstable could go home. Within 2 to 3 days she needs to be seen by provider to decide whether to start Lovenox because the prior history of DVT. 6:27 AM patient walked to the bathroom she was not terribly orthostatic she was able to urinate. Discharged in satisfactory condition Last Recorded V/S: Last Vital Signs Temp Pulse 95 07/06/20 05:20 Resp 20 07/06/20 04:26 BP 100/58 L 07/06/20 05:07 Pulse Ox 96 07/06/20 05:20 - Orders/Labs/Meds Orders: Active Orders 24 hr Category Date Time Status Insert Urinary Catheter [OM.PC] Stat Care 07/06/20 04:30 Ordered Urinary Catheter Assessment [RC] ASDIRECTED Care 07/06/20 04:44 Active Sodium Chloride 0.9% [Saline Flush] Med 07/06/20 04:22 Active 10 ml FLUSH ASDIRECTED PRN Sodium Chloride 0.9% [Saline Flush] Med 07/06/20 04:22 Active 2.5 ml FLUSH ASDIRECTED PRN Saline Lock Insert [OM.PC] Stat Oth 07/06/20 04:22 Ordered Medication Orders Sodium Chloride (Sodium Chloride 0.9% 10 Ml Syringe) 10 ml FLUSH ASDIRECTED PRN PRN Reason: Keep Vein Open Last Admin: 07/06/20 04:32 Dose: 10 ml Documented by: FELIX Sodium Chloride (Sodium Chloride 0.9% 2.5 Ml Syringe) 2.5 ml FLUSH ASDIRECTED PRN PRN Reason: Keep Vein Open Last Admin: 07/06/20 04:32 Dose: 2.5 ml Documented by: FELIX Labs: Laboratory Tests 07/06/20 07/06/20 07/06/20 Range/Units 04:28 04:35 04:35 WBC 16.66 H (4.0-11.0) K/uL RBC 2.84 L (4.30-5.90) M/uL Hgb 8.2 L (12.0-16.0) g/dL Hct 24.6 L (36.0-46.0) % MCV 86.6 (80.0-98.0) fL MCH 28.9 (27.0-32.0) pg MCHC 33.3 (31.0-37.0) g/dL RDW Std Deviation 42.6 (28.0-62.0) fl RDW Coeff of Vanessa 13 (11.0-15.0) % Plt Count 207 (150-400) K/uL MPV 9.50 (7.40-12.00) fL Neut % (Auto) 83.4 H (48.0-80.0) % Lymph % (Auto) 8.2 L (16.0-40.0) % [place] % (Auto) 8.4 (0.0-15.0) % Eos % (Auto) 0.0 (0.0-7.0) % Baso % (Auto) 0.0 (0.0-1.5) % Neut # (Auto) 13.9 H (1.4-5.7) K/uL Lymph # (Auto) 1.4 (0.6-2.4) K/uL [place] # (Auto) 1.4 H (0.0-0.8) K/uL Eos # (Auto) 0.0 (0.0-0.7) K/uL Baso # (Auto) 0.0 (0.0-0.1) K/uL Nucleated RBC % 0.0 /100WBC Nucleated RBCs # 0 K/uL Sodium 136 (136-145) mmol/L Potassium 3.9 (3.5-5.1) mmol/L Chloride 105 (98-107) mmol/L Carbon Dioxide 21.8 (21.0-32.0) mmol/L BUN 4 L (7.0-18.0) mg/dL Creatinine 0.6 (0.6-1.0) mg/dL Est Cr Clr Drug Dosing 104.74 mL/min Estimated GFR (MDRD) > 60.0 ml/min Glucose 149 H (74-106) mg/dL Calcium 7.9 L (8.5-10.1) mg/dL Urine Color YELLOW Urine Appearance CLEAR Urine pH 5.0 (5.0-8.0) Ur Specific [place] 1.010 (1.001-1.035) Urine Protein NEGATIVE (NEGATIVE) mg/dL Urine Glucose (UA) >=1000 (NEGATIVE) mg/dL Urine Ketones NEGATIVE (NEGATIVE) mg/dL Urine Occult Blood TRACE-LYSED H (NEGATIVE) Urine Nitrite NEGATIVE (NEGATIVE) Urine Bilirubin NEGATIVE (NEGATIVE) Urine Urobilinogen 0.2 (<2.0) EU/dL Ur Leukocyte Esterase NEGATIVE (NEGATIVE) Urine RBC 0-2 (0-2/HPF) Urine WBC 0-1 (0-5/HPF) Ur Epithelial Cells RARE (NONE-FEW) Urine Bacteria RARE (NEGATIVE) Blood Type Antibody Screen 07/06/20 Range/Units 04:40 WBC (4.0-11.0) K/uL RBC (4.30-5.90) M/uL Hgb (12.0-16.0) g/dL Hct (36.0-46.0) % MCV (80.0-98.0) fL MCH (27.0-32.0) pg MCHC (31.0-37.0) g/dL RDW Std Deviation (28.0-62.0) fl RDW Coeff of Vanessa (11.0-15.0) % Plt Count (150-400) K/uL MPV (7.40-12.00) fL Neut % (Auto) (48.0-80.0) % Lymph % (Auto) (16.0-40.0) % [place] % (Auto) (0.0-15.0) % Eos % (Auto) (0.0-7.0) % Baso % (Auto) (0.0-1.5) % Neut # (Auto) (1.4-5.7) K/uL Lymph # (Auto) (0.6-2.4) K/uL [place] # (Auto) (0.0-0.8) K/uL Eos # (Auto) (0.0-0.7) K/uL Baso # (Auto) (0.0-0.1) K/uL Nucleated RBC % /100WBC Nucleated RBCs # K/uL Sodium (136-145) mmol/L Potassium (3.5-5.1) mmol/L Chloride (98-107) mmol/L Carbon Dioxide (21.0-32.0) mmol/L BUN (7.0-18.0) mg/dL Creatinine (0.6-1.0) mg/dL Est Cr Clr Drug Dosing mL/min Estimated GFR (MDRD) ml/min Glucose (74-106) mg/dL Calcium (8.5-10.1) mg/dL Urine Color Urine Appearance Urine pH (5.0-8.0) Ur Specific [place] (1.001-1.035) Urine Protein (NEGATIVE) mg/dL Urine Glucose (UA) (NEGATIVE) mg/dL Urine Ketones (NEGATIVE) mg/dL Urine Occult Blood (NEGATIVE) Urine Nitrite (NEGATIVE) Urine Bilirubin (NEGATIVE) Urine Urobilinogen (<2.0) EU/dL Ur Leukocyte Esterase (NEGATIVE) Urine RBC (0-2/HPF) Urine WBC (0-5/HPF) Ur Epithelial Cells (NONE-FEW) Urine Bacteria (NEGATIVE) Blood Type A POSITIVE Antibody Screen NEGATIVE Meds: Medications Generic Name Dose Route Start Last Admin Trade Name Freq PRN Reason Stop Dose Admin Sodium Chloride 10 ml 07/06/20 04:22 07/06/20 04:32 Sodium Chloride 0.9% 10 Ml Syringe FLUSH 10 ml ASDIRECTED PRN Administration Keep Vein Open Sodium Chloride 2.5 ml 07/06/20 04:22 07/06/20 04:32 Sodium Chloride 0.9% 2.5 Ml Syringe FLUSH 2.5 ml ASDIRECTED PRN Administration Keep Vein Open Discontinued Medications Generic Name Dose Route Start Last Admin Trade Name Freq PRN Reason Stop Dose Admin Sodium Chloride 1,000 mls @ 1,000 mls/hr 07/06/20 04:22 07/06/20 04:33 Normal Saline IV 07/06/20 05:21 1,000 mls/hr .Bolus ONE Administration Departure - Departure Time of Disposition: 06:28 Disposition: Home, Self-Care 01 Clinical Impression: Acute urinary retention, bleeding, Labial swelling, Anemia - Discharge Information Instructions: Acute Urinary Retention, Female, [id number] Referrals: Regina Haddad MD [Primary Care Provider] - Forms: ED Department Discharge Additional Instructions: For the swelling ice packs are recommended and try to be off your feet as much as possible. Because she is going to be off her feet is much as possible and had a DVT or bl ood clot in the past you should follow-up with a practitioner in 2 to 3 days to see if after the bleeding has completely stopped you should start a blood thinner during this . When he will not be able to be as active as usual. You should take iron replacement for your anemia and you should take the equivalent of elemental iron up to 200 mg a day. This will cause constipation so take a stool softener and plenty of liquids as well. The pharmacist can help you find the most appropriate generic forms of these therapies. They should be [id number]. [facility] [address] [place] [address] [facility] [address] [place] [address] The following information is given to patients seen in the emergency department who are being discharged to home. This information is to outline your options for follow-up care. We provide all patients seen in our emergency department with a follow-up referral. The need for follow-up, as well as the timing and circumstances, are variable depending upon the specifics of your emergency department visit. If you don't have a primary care physician on staff, we will provide you with a referral. We always advise you to contact your personal physician following an emergency department visit to inform them of the circumstance of the visit and for follow-up with them and/or the need for any referrals to a consulting specialist. The emergency department will also refer you to a specialist when appropriate. This referral assures that you have the opportunity for follow-up care with a specialist. All of these measure are taken in an effort to provide you with optimal care, which includes your follow-up. Under all circumstances we always encourage you to contact your private physician who remains a resource for coordinating your care. When calling for follow-up care, please make the office aware that this follow-up is from your recent emergency room visit. If for any reason you are refused follow-up, please contact the [facility] Emergency Department at and asked to speak to the emergency department charge nurse. Sepsis Event Note (ED) - Evaluation Sepsis Screening Result: No Definite Risk - Focused Exam Vital Signs: Vital Signs Pulse Resp BP Pulse Ox 07/06/20 05:20 95 96 07/06/20 05:07 98 100/58 L 96 07/06/20 04:50 102 H 98 07/06/20 04:26 116 H 20 116/73 98 - My Orders Last 24 Hours: My Active Orders 07/06/20 04:22 Sodium Chloride 0.9% [Saline Flush] 10 ml FLUSH ASDIRECTED PRN Sodium Chloride 0.9% [Saline Flush] 2.5 ml FLUSH ASDIRECTED PRN Saline Lock Insert [OM.PC] Stat 07/06/20 04:30 Insert Urinary Catheter [OM.PC] Stat 07/06/20 04:44 Urinary Catheter Assessment [RC] ASDIRECTED - Assessment/Plan Last 24 Hours: My Active Orders 07/06/20 04:22 Sodium Chloride 0.9% [Saline Flush] 10 ml FLUSH ASDIRECTED PRN Sodium Chloride 0.9% [Saline Flush] 2.5 ml FLUSH ASDIRECTED PRN Saline Lock Insert [OM.PC] Stat 07/06/20 04:30 Insert Urinary Catheter [OM.PC] Stat 07/06/20 04:44 Urinary Catheter Assessment [RC] ASDIRECTED
== END 2020-07-06 06:47 | disposition home or self-care (01) ==
LOC: MW.ED 04:14
DX: O72.1 Other immediate postpartum hemorrhage (principal); O90.81 Anemia of the puerperium; O90.89 Other complications of the puerperium, not elsewhere classified; R33.9 Retention of urine, unspecified; O99.53 Diseases of the respiratory system complicating the puerperium; J45.909 Unspecified asthma, uncomplicated
CPT/HCPCS: 36415; 51701; 80048; 81001; 85025; 86850; 86900; 86901; 99284; J7030